=== PATIENT | male | born 1940 | race Caucasian/White ===

== ENCOUNTER 2024-06-02 21:06 | Emergency (ER) | payer OTHER, MEDICARE ==
[2024-06-02 21:16] VITALS: BP 148/81; PULSE 63; RESP 18; TEMP 98.8; BMI 25.0
== END 2024-06-03 01:15 | disposition home or self-care (01) ==
LOC: JER 21:06
DX: S50.311A Abrasion of right elbow, initial encounter (principal); H54.8 Legal blindness, as defined in USA; W01.0XXA Fall on same level from slipping, tripping and stumbling without subsequent striking against object, initial encounter; Y93.01 Activity, walking, marching and hiking
CPT/HCPCS: 73070-TC-RT-FY; 99283-25